=== PATIENT | female | born 2000 | race Hispanic/Latino ===

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

== ENCOUNTER 2022-11-19 10:02 | Emergency (ER) | payer OTHER ==
--- OUTSIDE RECORDS SUMMARY | 2022-11-19 10:07 | XMS REPORT | Continuity of Care Document ---
:2000 Author Organization [facility] t Address [address] [place] [address] Care Team Providers Name Role Phone MAGALI VANG P.A. Attending Clinician Unavailable SABI LAMB M.D. Attending Clinician Unavailable BURAK MARIN APRN Attending Clinician Unavailable Problems Condition Condition Condition Status Onset Resolution Last Treating Co mments Source Name Details Category Date Date Treatment Clinician Date Concussion Concussion Problem Active [facility] Headache Headache Problem Active [facility] Knee pain, Knee pain, Problem Active [facility] Allergies, Adverse Reactions, Alerts This patient has no known allergies or adverse reactions. Family History Family Member Diagnosis Comments Start Date Stop Date Source Grandmother Family history of diabetes [facility] mellitus Grandmother Family history of [facility] hypertension Grandmother Family history of arthritis [facility] Social History Smoking Status Start Date Stop Date Source Never smoked tobacco (finding) [facility] Medications Ordered Filled Start Stop Current Ordering Indication Dosage Frequency Signature Comments Components Source Medication Medication Date Date Medication? Clinician (SIG) Name Name Tylenol Tylenol Yes [facility] Immunizations Ordered Immunization Filled Immunization Date Status Commen ts Source Name Name Meningococcal, MCV4, 2018-09-04 Completed [facility] unspecified 00:00:00 conjugate formulation(groups A, C, Y and W-135) Meningococcal, MCV4, 2016-06-08 Completed [facility] unspecified 00:00:00 conjugate formulation(groups A, C, Y and W-135) Boostrix 5-2.5-18.5 2016-06-08 Completed [facility] Intramuscular 00:00:00 Suspension influenza virus 2013-09-04 Completed [facility] vaccine, unspecified 00:00:00 formulation influenza virus 2012-08-25 Completed [facility] vaccine, unspecified 00:00:00 formulation influenza virus 2011-09-27 Completed [facility] vaccine, unspecified 00:00:00 formulation influenza virus 2009-07-13 Completed [facility] vaccine, unspecified 00:00:00 formulation DTaP, unspecified 2008-08-25 Completed [facility] formulation 00:00:00 hepatitis A vaccine, 2008-08-25 Completed [facility] pediatric/adolescent 00:00:00 dosage, 2 dose schedule Ipol Injection 2008-07-05 Completed [facility] Injectable 00:00:00 Varivax 1350 2008-07-05 Completed [facility] PFU/0.5ML 00:00:00 Subcutaneous Injectable DTaP - Hepatitis B - 2008-01-26 Completed [facility] IPV 00:00:00 Pneumo (Prevnar 7) 2008-01-26 Completed [facility] 00:00:00 Hib, Haemophilus 2008-01-26 Completed [facility] influenzae type b 00:00:00 vaccine, PRP-T conjugate M-M-R II 2008-01-26 Completed [facility] Subcutaneous 00:00:00 Injectable hepatitis A vaccine, 2008-01-26 Completed [facility] pediatric/adolescent 00:00:00 dosage, 2 dose schedule Varivax 1350 2008-01-26 Completed [facility] PFU/0.5ML 00:00:00 Subcutaneous Injectable Hepatitis B, 2004-07-07 Completed [facility] pediatric/adolescent 00:00:00 dosage Ipol Injection 2004-07-07 Completed [facility] Injectable 00:00:00 Hib, Haemophilus 2004-07-07 Completed [facility] influenzae type b 00:00:00 vaccine, PRP-T conjugate DTaP, unspecified 2004-07-07 Completed [facility] formulation 00:00:00 M-M-R II 2004-07-07 Completed [facility] Subcutaneous 00:00:00 Injectable Hepatitis B, 2003-06-23 Completed [facility] pediatric/adolescent 00:00:00 dosage Ipol Injection 2003-06-23 Completed [facility] Injectable 00:00:00 Pneumo (Prevnar 7) 2003-06-23 Completed [facility] 00:00:00 Hib, Haemophilus 2003-06-23 Completed [facility] influenzae type b 00:00:00 vaccine, PRP-T conjugate DTaP, unspecified 2003-06-23 Completed [facility] formulation 00:00:00 Hepatitis B, 2000 Completed [facility] pediatric/adolescent 00:00:00 dosage influenza virus Unknown Completed [facility] vaccine, unspecified formulation Procedures Procedure Date / Time Performed Performing Clinician Sour e [U] XRAY KNEE 3 VWS LEFT 2019-04-24 00:00:00 [facility] [id number] Post Op Promis 29 Survey 2019-04-01 00:00:00 [facility] Encounters Start End Encounter Admission Attending Care Care Encounter Source Date/Time Date/Time Type Type Clinicians Facility Department ID 2019-04-27 2019-04-27 [facility] [id number] [place] 09:45:00 09:45:00 t; MAGALI VANG, at [facility] MAGALI, P[facility] ans P[facility] Medicine [facility] 2019-03-30 2019-03-30 [facility] [id number] [place] 09:45:00 09:45:00 t; MAGALI VANG, Ph yshusam DE [place] SANTOS, P.A. ans P.A. 2019-03-09 2019-03-09 [facility] [id number] [place] 09:45:00 09:45:00 t; MAGALI VANG, Ph ysici MAGALI, P.A. ans P.A. 2019-03-02 2019-03-02 [facility] [id number] [place] 15:00:00 15:00:00 t; MAGALI VANG, Ph ysici MAGALI, P.A. ans P.A. 2019-02-26 2019-02-26 [facility] [id number] [place] 09:15:00 09:15:00 t; SABI LAMB Physi ci WALTER, M.D. ans M.D. 2019-02-12 2019-02-12 [facility] [id number] [place] 15:00:00 15:00:00 t; SABI LAMB Physi ci WALTER, M.D. ans M.D. 2019-01-29 2019-01-29 [facility] [id number] [place] 11:00:00 11:00:00 t; BURAK, Trauma Physi stacy MARIN, [facility] This patient has no known results.
[2022-11-19 11:36] LABS: SARS-COV-2 RT PCR POSITIVE (NEGATIVE)
--- NOTE | 2022-11-19 11:40 | EDPHYS ---
Physician Documentation [facility] Name: Kandi Walker Age: 22 yrs Sex: Female : 2000 Arrival Date: 11/19/2022 Time: 10:08 Bed 10 Private MD: ED Physician Jadon Ledesma HPI: 11/19 10:26 This 22 yrs old Female presents to ER via Ambulatory with complaints of Body jr8 Aches, Fever, Headache. 10:26 Onset: The symptoms/episode began/occurred acutely, yesterday. Associated signs and jr8 symptoms: Pertinent positives: congestion, cough, fever, headache, sore throat. Modifying factors: The patient symptoms are alleviated by nothing, the patient symptoms are aggravated by nothing. The patient has not experienced similar symptoms in the past. The patient has not recently seen a physician. EQUAL OPPORTUNITY REPRESENTATIVE: 10:19 LMP 11/12/2022 ss Historical: - Allergies: 10:19 No Known Allergies; ss - Home Meds: 10:19 None [Active]; ss - PMHx: 10:19 None; ss - PSHx: 10:19 L knee repair; ss - Immunization history:: Client reports receiving the 2nd dose of the Covid vaccine. - Social history:: Smoking status: Patient denies any tobacco usage or history of. ROS: 10:26 Constitutional: Positive for body aches, chills, fever. jr8 10:26 ENT: Positive for sinus congestion, sore throat. 10:26 Respiratory: Positive for cough, Negative for shortness of breath, sputum production, wheezing. 10:26 Neuro: Positive for headache. 10:26 All other systems are negative. Exam: 10:26 Eyes: Pupils equal round and reactive to light, extra-ocular motions intact. Lids and jr8 lashes normal. Conjunctiva and sclera are non-icteric and not injected. Cornea within normal limits. Periorbital areas with no swelling, redness, or edema. ENT: Nares patent. No nasal discharge, no septal abnormalities noted. Tympanic membranes are normal and external auditory canals are clear. Oropharynx with mild redness. No swelling, or masses, exudates, or evidence of obstruction, uvula midline. Mucous membranes moist. Neck: Trachea midline, no thyromegaly or masses palpated, and no cervical lymphadenopathy. Supple, full range of motion without nuchal rigidity, or vertebral point tenderness. No Meningismus. Cardiovascular: Regular rate and rhythm with a normal S1 and S2. No gallops, murmurs, or rubs. Normal PMI, no JVD. No pulse deficits. Respiratory: Lungs have equal breath sounds bilaterally, clear to auscultation and percussion. No rales, rhonchi or wheezes noted. No increased work of breathing, no retractions or nasal flaring. Abdomen/GI: Soft, non-tender, with normal bowel sounds. No distension or tympany. No guarding or rebound. No evidence of tenderness throughout. Back: No spinal tenderness. No costovertebral tenderness. Full range of motion. Skin: Warm, dry with normal turgor. Normal color with no rashes, no lesions, and no evidence of cellulitis. MS/ Extremity: Pulses equal, no cyanosis. Neurovascular intact. Full, normal range of motion. Neuro: Awake and alert, GCS 15, oriented to person, place, time, and situation. Motor strength 5/5 in all extremities. Sensory grossly intact. Vital Signs: 10:18 BP 131 / 91; Pulse 98; Resp 14; Temp 97.9(TE); Pulse Ox 98% on R/A; Weight 74.84 kg; ss Height 5 ft. 3 in. (160.02 cm); Pain 0/10; 10:18 Body Mass Index 29.23 (74.84 kg, 160.02 cm) ss MDM: 10:20 Patient medically screened. rust 11:38 Data reviewed: vital signs, nurses notes, lab test result(s), covid +. Counseling: I rust had a detailed discussion with the patient and/or guardian regarding: the historical points, exam findings, and any diagnostic results supporting the discharge/admit diagnosis, lab results, the need for outpatient follow up, a family practitioner, to return to the emergency department if symptoms worsen or persist or if there are any questions or concerns that arise at home. 11:40 I considered the following discharge prescriptions or medication management in the rust emergency department Antibiotics: At this time antibiotics are not recommended, Antivirals: At this time, antivirals are not recommended. ED course: Discussed with patient that she is COVID-positive. No significant past medical history no indication to start her on antiviral treatment. To treat symptomatically with Tylenol and Motrin and will prescribe cough medicine at this time. If she has worsening of condition come back for further evaluation. Otherwise needs to isolate and conform to the CDC rules and regulations associated with COVID.. 11/19 10:26 Order name: Strep; Complete Time: 11:03 jr8 11/19 10:26 Order name: COVID-19/FLU A+B; Complete Time: 11:39 jr8 11/19 11:02 Order name: Throat Culture EDMS Administered Medications: No medications were administered Disposition: 19:17 Co-signature as Attending Physician, Jadon Ledesma DO I reviewed the patient's care ms3 provided by the Advanced Practice Provider and agree with the diagnosis and treatment plan. Disposition Summary: 11/19/22 11:39 Discharge Ordered Location: Home jr8 Problem: new jr8 Symptoms: have improved jr8 Condition: Stable jr8 Diagnosis - SARS-associated coronavirus as the cause of diseases classified elsewhere jr8 Followup: jr8 - With: Private Physician - When: 1 week - Reason: Recheck today's complaints, Continuance of care, Re-evaluation by your physician Discharge Instructions: - Discharge Summary Sheet jr8 - COVID-19 jr8 - 10 Things You Can Do to Manage Your COVID-19 Symptoms at Home - [facility] jr8 Forms: - Medication Reconciliation Form jr8 - Work release form iw - Thank You Letter jr8 - Antibiotic Education jr8 - Prescription Opioid Use jr8 Prescriptions: - promethazine-DM 6.25-15 mg/5 mL Oral syrup - take 5 milliliter by ORAL route every 4-6 hours as needed, not to exceed 30 mL jr8 in 24 hours; 120 milliliter; Refills: 0, Product Selection Permitted Signatures: Dispatcher [employer] EDMS Nicole Brown RN RN Silviano Crump PA PA jr8 Jadon Ledesma DO DO ms3
--- NOTE | 2022-11-19 11:40 | ER ---
Nurse's Notes [facility] Name: Kandi Walker Age: 22 yrs Sex: Female : 2000 Arrival Date: 11/19/2022 Time: 10:08 Bed 10 Private MD: Diagnosis: SARS-associated coronavirus as the cause of diseases classified elsewhere Presentation: 11/19 10:18 Chief complaint: Patient states: fever, body aches, sore throat, cough and congestion ss that began Ramos evening. Coronavirus screen: Client denies travel out of the [place] in the last 14 days. Ebola Screen: Patient denies exposure to infectious person. Patient denies travel to an Ebola-affected area in the 21 days before illness onset. Initial Sepsis Screen: Does the patient meet any 2 criteria? No. Patient's initial sepsis screen is negative. Does the patient have a suspected source of infection? No. Patient's initial sepsis screen is negative. Risk Assessment: Do you want to hurt yourself or someone else? Patient reports no desire to harm self or others. Note Pt last self administered Tylenol at 0900. Onset of symptoms was November 16, 2022. 10:18 Method Of Arrival: Ambulatory ss 10:18 Acuity: KAYLYN 4 ss DOMAIN ARCHITECT: 10:19 LMP 11/12/2022 Historical: - Allergies: 10:19 No Known Allergies; ss - Home Meds: 10:19 None [Active]; ss - PMHx: 10:19 None; ss - PSHx: 10:19 L knee repair; ss - Immunization history:: Client reports receiving the 2nd dose of the Covid vaccine. - Social history:: Smoking status: Patient denies any tobacco usage or history of. Vital Signs: 10:18 BP 131 / 91; Pulse 98; Resp 14; Temp 97.9(TE); Pulse Ox 98% on R/A; Weight 74.84 kg; ss Height 5 ft. 3 in. (160.02 cm); Pain 0/10; 10:18 Body Mass Index 29.23 (74.84 kg, 160.02 cm) ED Course: 10:08 Patient arrived in ED. rg4 10:19 Triage completed. ss 10:19 Arm band placed on right wrist. ss 10:20 Silviano Bermudez PA is PHCP. jr8 10:20 Jadon Ledesma DO is Attending Physician. jr8 10:20 Mary Angeles, RN is Primary Nurse. iw 10:44 COVID-19/FLU A+B Sent. ap3 10:44 Strep Sent. ap3 Administered Medications: No medications were administered Outcome: 11:39 Discharge ordered by . jr8 11:57 Patient left the ED. iw Signatures: Mary Angeles, RN SANDY Nicole Brown RN RN Silviano Bermudez PA PA jr8 Devi Liriano 4 Mary Snow RN RN ap3
[2022-11-19 12:30] VITALS: BP 131/91; TEMP 97.9; O2SAT 98
== END 2022-11-19 11:57 | disposition home or self-care (01) ==
LOC: ER 10:02
DX: U07.1 COVID-19 (principal)
CPT/HCPCS: 87070; 87081; 0240U; 99282

== ENCOUNTER 2023-06-18 15:58 | Emergency (ER) | payer OTHER ==
--- OUTSIDE RECORDS SUMMARY | 2023-06-18 16:16 | XMS REPORT | Continuity of Care Document ---
:2000 Author Organization [facility] t Address [address] [facility] [address] [place] [id number] Care Team Providers Name Role Phone Jesus Herrera Primary Care Physician ELOY CLEVELAND Attending Clinician Unavailable ELOY CLEVELAND Attending Clinician Unavailable 2, [facility] Attending Clinician Unavailable Doctor Unassigned, [place] Attending Clinician Unavailable MAGALI VANG P.A. Attending Clinician Unavailable SABI LAMB M.D. Attending Clinician Unavailable BURAK MARIN APRN Attending Clinician Unavailable Payers Payer Name Policy Type Policy Number Effective Date Expiration Date S ource Problems Condition Condition Condition Status Onset Resolution Last Treating Co mments Source Name Details Category Date Date Treatment Clinician Date Concussion Concussion Problem Active [facility] Headache Headache Problem Active [facility] Knee pain, Knee pain, Problem Active [facility] left left Physici ans Allergies, Adverse Reactions, Alerts Allergy Allergy Status Severity Reaction(s) Onset Inactive Treating Comm ents Source Name Type Date Date Clinician NO KNOWN Drug Active Univers ALLERGIE Class ity of [facility] Family History Family Member Diagnosis Comments Start Date Stop Date Source Grandmother Family history of diabetes [facility] mellitus Grandmother Family history of [facility] hypertension Grandmother Family history of arthritis [facility] Social History Social Habit Start Date Stop Date Quantity Comments Source ASSERTION 2023-04-12 [facility] 00:00:[address] [facility] Gender identity [facility] Sexual orientation Univer [facility] Alcohol intake 2023-05-31 2023-05-31 Ex-drinker University of 00:00:00 00:00:00 (finding) [facility] Sex Assigned At [birth year] [facility] y [facility] 00:00:00 00:00:[address] [facility] Smoking Status Start Date Stop Date Source Never smoked tobacco (finding) [facility] Tobacco smoking consumption [facility] Medications Ordered Filled Start Stop Current Ordering [...] Completed [facility] vaccine, unspecified formulation Vital Signs Vital Name Observation Time Observation Value Comments Source Systolic blood 2023-05-31 14:36:00 105 mm[facility]Hg[facility] Diastolic blood 2023-05-31 14:36:00 79 mm[Hg] [facility] Heart rate 2023-05-31 14:36:00 85 /min [facility] Body temperature 2023-05-31 14:36:00 36.83 [place] [facility] Respiratory rate 2023-05-31 14:36:00 18 /min [facility] Body height 2023-05-31 14:36:00 160 cm [facility] Body weight 2023-05-31 14:36:00 76.658 kg [facility] BMI 2023-05-31 14:36:00 29.94 kg/m2 [facility] Procedures Procedure Date / Time Performing Clinician Source Performed POCT URINALYSIS W/O 2023-05-31 15:04:00 Eloy Cleveland Un iversity [facility] SPECIFIC GRAVITY [facility] US OB TRANSVAGINAL 2023-05-31 15:02:50 Eloy Cleveland Uni [facility] ASSIGNMENT OF BENEFITS 2023-05-31 14:16:01 Doctor Unassigned, No [facility] POCT TEST 2023-05-31 00:00:00 [facility] K[facility]EE 3 VWS 2019-04-24 00:00:00 [facility] LEFT [id number] Post Op Promis 29 2019-04-01 00:00:00 [facility] Survey Encounters Start End Encounter Admission Attending Care Care Encounter Source Date/Time Date/Time Type Type Clinicians Facility Department ID 2023-06-17 2023-06-17 Telephone Avila-Stephanie [facility] [id number] [facility] 00:00:00 00:00:00 s, Eloy [place] [id number] [id number] [phone] Mi dical NAL [address] [place] [address] 2023-06-07 2023-06-07 Telephone Avila-Stephanie [facility] [id number] [facility] 00:00:00 00:00:00 s, Eloy [place] [id number] [id number] [id number] Mi dical NAL [address] [place] [address] 2023-05-31 2023-05-31 C Programmer 2, Adc Lab [facility] [id number] [facility] 11:15:00 11:30:00 Visit Eloy ClevelandTON 350.1.1 3.10 [id number] [id number] Mi dical NAL [address] [facility] 2023-05-31 2023-05-31 Outpatient R ELOY CLEVELAND [facility] [id number] Univers 11:15:00 11:15:[address] C[address]SOL ity of [facility] 2023-05-31 2023-05-31 Initial Camilla [facility] [id number] Univers 09:00:00 10:07:01 s, [facility] [id number] ity of Visit [id number] [phone] Mi dical NAL [address] [facility] 2023-05-31 2023-05-31 Orders Doctor TANNER [id number] Univers 00:00:00 00:00:00 Only Unassigned, JOSEPHINE [id number] ity of [place] [facility] [id number] [place] as [id number] [address] 2019-04-27 2019-04-27 [facility]oint[facility]ha [facility] [id number] [place] 09:45:00 09:45:00 t; MAGALI VANG, at [facility]ebo [place] [employer] ans [facility]. Medicine [place] [facility] 2019-03-30 2019-03-30 Appointmegha VANG, [facility] [id number] [place] 09:45:00 09:45:00 t; MAGALI VANG, Ph kalen [place], PPatric ans P.A. 2019-03-09 2019-03-09 Appointmegha VANG, [facility] [id number] [place] 09:45:00 09:45:00 t; MAGALI VANG, Ph kalen [place], P.AElgin ans P.A. 2019-03-02 2019-03-02 Appointmegha VANG, [facility] [id number] [place] 15:00:00 15:00:00 t; MAGALI VANG, Ph kalen [place], P.AElgin ans P.A. 2019-02-26 2019-02-26 Pily LAMB [facility] [id number] [place] 09:15:00 09:15:00 t; SABI LAMB Physi ci WALTER, M.D. ans M.D. 2019-02-12 2019-02-12 Appointmen ZAINAB [facility] [id number] [place] 15:00:00 15:00:00 t; SABI LAMB Physi ci WALTER, M.D. ans M.D. 2019-01-29 2019-01-29 Appointmegha MARIN [facility] Orthopedics 51 [id number] [place] 11:00:00 11:00:00 t; BURAK, [facility] Results Test Description Test Time Test Comments Results Result Comments Source POCT URINALYSIS W/O SPECIFIC GRAVITY 2023-05-31 15:05:00 Test Item Value Reference Range Interpretation Comme nts POCT PH U (test code = 3254) 8 mg/dl 5-8 POCT U LEUK EST (test code = 3263) Negative Negative - Negative POCT U NIT (test code = 3262) Negative Negative - Negative POCT U PROT (test code = 3259) Negative Negative - Negative POCT U GLU (test code = 3256) Normal Negative - Negative POCT U KETONE (test code = 3258) Negative Negative - Negative POCT U BLD (test code = 3257) Normal Negative - Negative [id number] 14:49:00 Test Item Value Reference Range Interpretation Comments POCT PREG (test code = 1605) Positive On board controls acceptable with C Yes Line (test code = 3574) POCT PREG LOT # (test code = 3575) POCT PREG TEST DATE (test code = 3576) [facility] Notes Date/Time Note Provider Source 2023-06-17 Formatting of this note might be differe nt from the original. Alicia Carrillo [facility] 14:37:43-00:00 Name and verified. Pt st ated that she has been having lower back pain above her buttocks x 1 week radiating down right leg. Only when she moves a certain way or walking for a long period of time. Pt RN also stated that she is sti ll constipated. Last BM was last night. Hard stools. Took stool softener x 1. Advised pt that she should t salazar Tyenol for back pain. Apply heat to lower back at lowest temperature. Use a pillow in between knees at night. Stretch. If not better- to call our office. I also advised pt to continu e stool softeners as directed on bottle. One dose will not make it better right away. Increase fluids and fiber. Pt also c/o being tired. Exp lained to her that her CBC was normal. Advised to continue PNV and eat well. Instructed pt to call office if s/s worsens or does not get better, Verbalized understanding. 2023-06-17 Formatting of this note might be differe nt from the original. Paola Chicas [facility] 11:17:11-00:00 Patient is calling she is ex periencing pain walking not sure if it's her sciatica. Her body feels tired and weak. Patient also still she is still having trouble using the restroom. Please call and advise thanks. Electronically signed by Paola Chicas at 11:19 AM T 2023-06-07 Formatting of this note might be differe nt from the original. Vin Becerra RN [facility] 16:40:19-00:00 Contacted patient. Patient s tates she needs medication for constipation. Patient advised I would send safe medications during list through [facility]. Patient verbalized understanding. Vin Becerra RN 06/07/2023 4:41 PM 2023-06-07 Formatting of this note might be differe nt from the original. Yanira Jim [facility] 16:24:03-00:00 Per pt is and is co nstipated and would like to know what she can take. Please advise. Electronically signed by Yanira Jim at 05/28 4:24 PM CDT 2023-05-31 Formatting of this note is different from the or iginal. [facility] 11:15:00-00:00 Images from the original note were not included. Venipuncture collection perf ormed by clean technique on the left anticubitus. Total of 1 attempts were made. Slight pressure and a bandage/dressing were applied to the site(s). The patient experienced n o complications. The followi ng specimens were processed according to instructions and sent to [facility] laboratories per lab order on 05/31/2023 : LT BLUE SST 3 RED LAV 2 PPT DK GREEN (LiHep) DK GREEN (SodH) OROSCO DK BLUE (K2) DK BLUE (S) ACD Blood Culture NIPT/NTD Electronically signed by Martha Penn at 2022 10:32 AM CDT
[2023-06-18 16:42] LABS: Urine Bacteria <20 /HPF (<20); Urine Bilirubin Negative (Negative); Urine Clarity Turbid (Clear); Urine Color Yellow (Yellow); Urine Glucose Negative (Negative); Urine Mucus 4+ /HPF (None Seen); Urine WBC Clump Occasional /HPF (None Seen)
[2023-06-18 16:43] LABS: Urine Blood 1+ (Negative); Urine Protein 1+ (Negative); Urine Urobilinogen Normal (Normal)
[2023-06-18] MEDS ORDERED: ACETAMINOPHEN 500 MG TAB ONE (16:53)
--- NOTE | 2023-06-18 17:50 | EDPHYS ---
Physician Documentation [facility] Name: Kandi Walker Age: 22 yrs Sex: Female : 2000 Arrival Date: 06/18/2023 Time: 15:58 Bed 13 Private MD: ED Physician Jadon Ledesma HPI: 06/18 17:49 This 22 yrs old Female presents to ER via Ambulatory with complaints of ms3 Nausea/Vomiting. 17:49 22-year-old female with no past medical history presents for generalized weakness, ms3 fatigue, back pain that has been ongoing for 1 week. Patient states she has 6/10 discomfort as her body hurts. Patient states she is currently and Dr. Rolon's with [facility] is her OB. Patient states her last menstrual period was February 11, 2023. Patient is G1, P0. Patient endorses nausea. Patient denies urinary frequency, urgency, dysuria, vaginal bleeding.. 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 - Social history:: Smoking status: Patient denies any tobacco usage or history of. ROS: 17:49 Eyes: Negative for injury, pain, redness, and discharge, Neck: Negative for injury, ms3 pain, and swelling, Cardiovascular: Negative for chest pain, and palpitations. Respiratory: Negative for shortness of breath, cough, wheezing, and pleuritic chest pain. 17:49 : Negative for injury, bleeding, discharge, and swelling, Skin: Negative for injury, rash, and discoloration, Neuro: Negative for headache, weakness, numbness, tingling. Psych: Negative for depression, anxiety, suicide ideation, homicidal ideation, and hallucinations. 17:49 Constitutional: Positive for malaise, Generalized weakness. 17:49 Abdomen/GI: Positive for nausea. 17:49 All other systems are negative. Exam: 17:49 Constitutional: This is a well developed, well nourished patient who is awake, alert, ms3 and in no acute distress. Head/Face: Normocephalic, atraumatic. Neck: Trachea midline, no cervical lymphadenopathy. Supple, full range of motion without nuchal rigidity, or vertebral point tenderness. No Meningismus. Chest/axilla: Normal chest wall appearance and motion. Nontender with no deformity. Cardiovascular: Regular rate and rhythm with a normal S1 and S2. No gallops, murmurs, or rubs. Normal PMI, no JVD. No pulse deficits. Respiratory: Lungs have equal breath sounds bilaterally, clear to auscultation and percussion. No rales, rhonchi or wheezes noted. No increased work of breathing, no retractions or nasal flaring. Abdomen/GI: Soft, non-tender, with normal bowel sounds. No distension or tympany. No guarding or rebound. No evidence of tenderness throughout. Back: No spinal tenderness. No costovertebral tenderness. Full range of motion. Skin: Warm, dry with normal turgor. Normal color with no rashes, no lesions, and no evidence of cellulitis. MS/ Extremity: Pulses equal, no cyanosis. Neurovascular intact. Full, normal range of motion. Neuro: Awake and alert, GCS 15, oriented to person, place, time, and situation. Cranial nerves II-XII grossly intact. Motor strength 5/5 in all extremities. Sensory grossly intact. Cerebellar exam normal. Normal gait. Vital Signs: 16:10 BP 125 / 90; Pulse 80; Resp 17; Temp 97.5; Pulse Ox 99% on R/A; Weight 76.66 kg (R); rs5 Height 5 ft. 3 in. (R); Pain 6/10; 17:50 BP 122 / 84; Pulse 88; Resp 16; Pulse Ox 100% on R/A; mb9 16:10 Body Mass Index 29.94 (76.66 kg, 160.02 cm) rs5 16:10 Pain Scale: Adult rs5 MDM: 16:38 Patient medically screened. ms3 17:49 Differential diagnosis: UTI versus anemia versus electrolyte abnormality. Data ms3 reviewed: vital signs, nurses notes, lab test result(s), and as a result, I will discharge patient. I considered the following discharge prescriptions or medication management in the emergency department Medications were administered in the Emergency Department. See MAR. Counseling: I had a detailed discussion with the patient and/or guardian regarding the historical points, exam findings, and any diagnostic results supporting the discharge/admit diagnosis, lab results, the need for outpatient follow up, to return to the emergency department if symptoms worsen or persist or if there are any questions or concerns that arise at home. Special discussion: I discussed with the patient/guardian in detail that at this point there is no indication for admission to the hospital. It is understood, however, that if the symptoms persist or worsen the patient needs to return immediately for re-evaluation. ED course: Discussed urinalysis with patient. Patient to follow-up with her computer tester and 2 to 3 days. Patient understands and agrees with plan. All questions were answered. Return precautions discussed include fevers, chills, vomiting, abdominal pain, worsening symptoms, or any other concerns. On reevaluation patient is improved, alert and oriented x4, no apparent distress, nontoxic-appearing, ambulatory in emergency department, speaking full sentences. 06/18 16:23 Order name: Urinalysis w/ reflexes; Complete Time: 17:47 ms3 06/18 16:47 Order name: Urine Culture EDMS Administered Medications: 16:47 Drug: Acetaminophen PO 1000 mg Route: PO; mb9 17:50 Follow up: Response: No adverse reaction mb9 Disposition Summary: 06/18/23 17:49 Discharge Ordered Location: Home ms3 Condition: Stable ms3 Diagnosis - Low back pain ms3 - Nausea ms3 Followup: ms3 - With: Private Physician - When: 2 - 3 days - Reason: Recheck today's complaints Discharge Instructions: - Discharge Summary Sheet ms3 - Nausea, Adult, [id number] ms3 - Preparing for ms3 Forms: - Medication Reconciliation Form ms3 - Thank You Letter ms3 - Antibiotic Education ms3 - Prescription Opioid Use ms3 - Patient Portal Instructions ms3 - Leadership Thank You Letter ms3 Prescriptions: - Diclegis 10-10 mg Oral tablet, delayed release (enteric coated) - take 1 tablet by ORAL route every day at bedtime; 30 tablet; Refills: 0, ms3 Product Selection Permitted Signatures: Dispatcher [employer] EDMS Jadon Ledesma DO DO ms3 Maryellen Patterson RN RN mb9 Raúl Wynn RN RN rs5
--- NOTE | 2023-06-18 17:50 | ER ---
Nurse's Notes [facility] Name: Kandi Walker Age: 22 yrs Sex: Female : 2000 Arrival Date: 06/18/2023 Time: 15:58 Bed 13 Private MD: Diagnosis: Low back pain;Nausea Presentation: 06/18 16:08 Chief complaint: Patient states: weakness, dizziness, nausea, vomiting for a week. Pt rs5 states "I am three months ". 16:08 Method Of Arrival: Ambulatory rs5 16:10 Coronavirus screen: nausea, vomiting. Ebola Screen: Patient denies exposure to rs5 infectious person. Patient denies travel to an Ebola-affected area in the 21 days before illness onset. Initial Sepsis Screen: Does the patient meet any 2 criteria? No. Patient's initial sepsis screen is negative. Does the patient have a suspected source of infection? No. Patient's initial sepsis screen is negative. Risk Assessment: Do you want to hurt yourself or someone else? Patient reports no desire to harm self or others. 16:10 Acuity: KAYLYN 3 rs5 16:10 Onset of symptoms was June 11, 2023. 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 - Social history:: Smoking status: Patient denies any tobacco usage or history of. Screenin:48 [facility] ED Fall Risk Assessment (Adult) History of falling in the last 3 months, mb9 including since admission No falls in past 3 months (0 pts) Confusion or Disorientation No (0 pts) Intoxicated or Sedated No (0 pts) Impaired Gait No (0 pts) Mobility Assist Device Used No (0 pt) Altered Elimination No (0 pt) Score/Fall Risk Level 0 - 2 = Low Risk Oriented to surroundings, Maintained a safe environment, Educated pt \\T\\ family on fall prevention, incl call for assistance when getting out of bed. Abuse screen: Denies threats or abuse. Nutritional screening: No deficits noted. Tuberculosis screening: No symptoms or risk factors identified. Assessment: 16:47 General: Appears in no apparent distress. Behavior is calm, cooperative. Pain: Denies mb9 pain. Neuro: Jaime Agitation-Sedation Scale (RASS): 0 - Alert and Calm Level of Consciousness is awake, alert, obeys commands, Oriented to person, place, time, situation, Appropriate for age Reports dizziness, headache. Cardiovascular: Patient's skin is warm and dry. Respiratory: Airway is patent Respiratory effort is even, unlabored, Respiratory pattern is regular, symmetrical. GI: Abdomen is flat, non-distended, Bowel sounds present X 4 quads. Abd is soft and non tender X 4 quads. Reports nausea. Derm: Skin is pink, warm \\T\\ dry. Musculoskeletal: Range of motion: intact in all extremities. 17:37 Reassessment: No changes from previously documented assessment. Patient and/or family mb9 updated on plan of care and expected duration. Pain level reassessed. Patient is alert, oriented x 3, equal unlabored respirations, skin warm/dry/pink. Vital Signs: 16:10 BP 125 / 90; Pulse 80; Resp 17; Temp 97.5; Pulse Ox 99% on R/A; Weight 76.66 kg (R); rs5 Height 5 ft. 3 in. (R); Pain 6/10; 17:50 BP 122 / 84; Pulse 88; Resp 16; Pulse Ox 100% on R/A; mb9 16:10 Body Mass Index 29.94 (76.66 kg, 160.02 cm) rs5 16:10 Pain Scale: Adult rs5 ED Course: 16:03 Patient arrived in ED. kj1 16:06 Jadon Ledesma DO is Attending Physician. ms3 16:13 Triage completed. rs5 16:39 Maryellen Patterson, SANDY is Primary Nurse. mb9 16:47 Arm band placed on. mb9 16:48 Placed in gown. Bed in low position. Call light in reach. Side rails up X 1. Client mb9 placed on continuous cardiac and pulse oximetry monitoring. NIBP monitoring applied. security monitor on. 17:50 No provider procedures requiring assistance completed. Patient did not have IV access mb9 during this emergency room visit. 17:50 Urine Culture Sent. mb9 Administered Medications: 16:47 Drug: Acetaminophen PO 1000 mg Route: PO; mb9 17:50 Follow up: Response: No adverse reaction mb9 Medication: 16:48 VIS not applicable for this client. mb9 Outcome: 17:49 Discharge ordered by . ms3 17:56 Discharged to home ambulatory. mb9 17:56 Condition: stable 17:56 Discharge instructions given to patient, Instructed on discharge instructions, follow up and referral plans. Demonstrated understanding of instructions, follow-up care, medications, Prescriptions given X 1. 17:56 Patient left the ED. mb9 Signatures: Codi Rob [email or web address] Jadon Ledesma DO DO ms3 Maryellen Patterson, RN RN mb9 Raúl Wynn RN RN rs5 Corrections: (The following items were deleted from the chart) 16:16 16:10 BP 125 / 90; Pulse 80bpm; Resp 17bpm; Pulse Ox 99% RA; Temp 97.5F; Pain 6/10, rs5 Adult; rs5
[2023-06-18 18:44] VITALS: TEMP 97.5
[2023-06-18 18:45] VITALS: BP 122/84; O2SAT 100
== END 2023-06-18 17:56 | disposition home or self-care (01) ==
LOC: ER 15:58
DX: O21.9 Vomiting of pregnancy, unspecified (principal); O26.891 Other specified pregnancy related conditions, first trimester; Z3A.12 12 weeks gestation of pregnancy
CPT/HCPCS: 81001; 87086; 87088; 99284

== ENCOUNTER 2023-07-31 17:21 | Emergency (ER) | payer OTHER ==
--- OUTSIDE RECORDS SUMMARY | 2023-07-31 17:25 | XMS REPORT | Continuity of Care Document ---
:2000 Author Organization [facility] t Address [address] [place] [address] [id number] Care Team Providers Name Role Phone ELISSA QUINTANAALD Diane Primary Care Physician Unavailable ELOY CLEVELAND Attending Clinician Unavailable ELOY CLEVELAND Attending Clinician Unavailable 2, [facility] Attending Clinician Unavailable Doctor Unassigned, [place] Attending Clinician Unavailable MAGALI VANG P.A. Attending Clinician Unavailable SABI LAMB M.D. Attending Clinician Unavailable BURAK MARIN APRN Attending Clinician Unavailable Payers Payer Name Policy Type Policy Number Effective Date Expiration Date [facility] [id number] 2021 PPO 00:00:00 Problems Condition Condition Condition Status Onset Resolution Last Treating Co mments Source Name Details Category Date Date Treatment Clinician Date High-risk High-risk Disease Active Uni vers 06-28 ity of in first in first 00:: [place] trimester trimester 00 [facility] Vaginal Vaginal Disease Active Univers discharge discharge 06-28 ity of 00:00: [address] Nausea and Nausea and Disease Active U nivers vomiting vomiting 06-28 ity of during during 00:00: [place] 00 [facility] Concussion Concussion Problem Active [facility] Headache Headache Problem Active [facility] Knee pain, Knee pain, Problem Active U T left left Physici ans Allergies, Adverse Reactions, Alerts Allergy Allergy Status Severity Reaction(s) Onset Inactive Treating Comm ents Source Name Type Date Date Clinician NO KNOWN Drug Active Univers ALLERGIE Class ity of S [facility] Family History Family Member Diagnosis Comments Start Date Stop Date Source Grandmother Family history of diabetes [facility] mellitus Grandmother Family history of [facility] hypertension Grandmother Family history of arthritis [facility] Social History Social Habit Start Date Stop Date Quantity Comments Source ASSERTION 2023-04-12 [facility] 00:00:00 [facility] Gender identity [facility] Sexual orientation [facility] Alcohol intake 2023-07-29 2023-07-29 Ex-drinker [facility] 00:00:00 00:00:00 (finding) [facility] Sex Assigned At [birth year] Universit y of 00:00:00 00:00:00 [facility] Smoking Status Start Date Stop Date Source Never smoked tobacco (finding) [facility] Tobacco smoking consumption [facility] Branch Medications Ordered Filled Start Stop Current Ordering Indication Dosage Frequency Signature Comments Components Source Medication Medication Date Date Medication? Clinician (SIG) Name Name metroNIDAZO Yes [id number] 500mg Take 1 Univers LE (FLAGYL) 9-03 tablet by ity of 500 mg 00:00: mouth [place] tablet 00 every 12 Medical (twelve) Branch hours. metroNIDAZO Yes [id number] 500mg Take 1 Univers LE (FLAGYL) 9-03 tablet by ity of 500 mg 00:00: mouth [place] tablet 00 every 12 Medical (twelve) Branch hours. metroNIDAZO Yes [id number] 500mg Take 1 Univers LE (FLAGYL) 9-03 tablet by ity of 500 mg 00:00: mouth [place] tablet 00 every 12 Medical (twelve) Branch hours. metroNIDAZO Yes [id number] 500mg Take 1 Univers LE (FLAGYL) 9-03 tablet by ity of 500 mg 00:00: mouth [place] tablet 00 every 12 Medical (twelve) Branch hours. Yes Take by [employer] s 25/iron - mouth. ity of fum/folic/d 16:00: [facility] 31 Medical (-1 Branch ORAL) Yes Take by Univer s 25/iron - mouth. ity of fum/folic/d 16:00: [facility] 31 Medical (-1 Branch ORAL) Yes Take by [employer] [facility] 25/iron 9-01 mouth. ity of fum/folic/d 16:00: [facility] 31 Medical (-1 Branch ORAL) Yes Take by Univer s 25/iron 9-01 mouth. ity of fum/folic/d 16:00: [facility] 31 Medical (-1 Branch ORAL) Yes Take by Univer s 25/iron 9-01 mouth. ity of fum/folic/d 16:00: [facility] 31 Medical (-1 Branch ORAL) proMETHazin Yes [id number] 25mg Take 1 Univers e 25 mg 9-01 tablet by ity of tablet 00:00: mouth at [place] [address] bedtime. Medical Branch proMETHazin Yes [id number] 25mg Take 1 Univers e 25 mg 9-01 tablet by ity of tablet 00:00: mouth at [place] [address] bedtime. Medical Branch proMETHazin Yes [id number] 25mg Take 1 Univers e 25 mg 9-01 tablet by ity of tablet 00:00: mouth at [place] [address] bedtime. Medical Branch proMETHazin Yes [id number] 25mg Take 1 Univers e 25 mg 9-01 tablet by ity of tablet 00:00: mouth at [place] [address] bedtime. Medical Branch proMETHazin Yes [id number] 25mg Take 1 Univers e 25 mg 9-01 tablet by ity of tablet 00:00: mouth at [place] [address] bedtime. Medical Branch Tylenol Tylenol Yes [facility] TABS TABS Physici ans Vital Signs Vital Name Observation Time Observation Value Comments Source Systolic blood 2023-07-29 21:24:00 110 mm[Hg] Univer sity of pressure [facility] Diastolic blood 2023-07-29 21:24:00 74 mm[Hg] Unive rsity of pressure [facility] Heart rate 2023-07-29 21:24:00 84 /min [facility] Body temperature 2023-07-29 21:24:00 36.83 [place] [facility] Respiratory rate 2023-07-29 21:24:00 18 /min [facility] Body height 2023-07-29 21:24:00 160 cm [facility] Body weight 2023-07-29 21:24:00 73.029 kg [facility] [place] [facility] BMI 2023-07-29 21:24:00 28.52 kg/m2 [facility] [place] [facility] Systolic blood 2023-06-28 20:59:00 109 mm[Hg] Univer sity of pressure [place] [facility] Diastolic blood 2023-06-28 20:59:00 74 mm[Hg] Unive rsity of pressure [place] [facility] Heart rate 2023-06-28 20:59:00 93 /min [facility] [place] [facility] Body temperature 2023-06-28 20:59:00 36.5 [place] [facility] [place] [facility] Respiratory rate 2023-06-28 20:59:00 16 /min Univ ers[facility] [place] [facility] Body height 2023-06-28 20:59:00 160 cm [facility] [place] [facility] Body weight 2023-06-28 20:59:00 75.252 kg [facility] [place] [facility] BMI 2023-06-28 20:59:00 29.39 kg/m2 [facility] [place] [facility] Systolic blood 2023-05-31 14:36:00 105 mm[Hg] Univer sity of pressure [place] [facility] Diastolic blood 2023-05-31 14:36:00 79 mm[Hg] Unive rsity of pressure [place] [facility] Heart rate 2023-05-31 14:36:00 85 /min [facility] [place] [facility] Body temperature 2023-05-31 14:36:00 36.83 [place] [facility] [place] [facility] Respiratory rate 2023-05-31 14:36:00 18 /min Univ ers[facility] [place] [facility] Body height 2023-05-31 14:36:00 160 cm [facility] [place] [facility] Body weight 2023-05-31 14:36:00 76.658 kg [facility] [place] [facility] BMI 2023-05-31 14:36:00 29.94 kg/m2 [facility] [place] [facility] Procedures Procedure Date / Time Performing Clinician Source Performed POCT URINALYSIS W/O 2023-07-29 00:00:00 Serrano-Brizuela Eloy [facility] [place] SPECIFIC GRAVITY Medical Branch POCT URINALYSIS W/O 2023-06-28 00:00:00 Serrano-Brizuela, Eloy Un iversity of [facility] POCT URINALYSIS W/O 2023-05-31 15:04:00 Eloy Cleveland Un iversity [facility] US OB TRANSVAGINAL 2023-05-31 15:02:50 [facility]EFITS 2023-05-31 14:16:01 Doctor Unassigned, No [facility] POCT TEST 2023-05-31 00:00:00 Eloy Cleveland Un [facility] [U] XRAY KNEE 3 VWS 2019-04-24 00:00:00 [facility] LEFT [id number] Post Op Promis 29 2019-04-01 00:00:00 [facility] Survey Encounters Start End Encounter Admission Attending Care Care Encounter Source Date/Time Date/Time Type Type Clinicians Facility Department ID 2023-08-06 2023-08-06 Outpatient P [facility] [id number] Univers 14:00:00 14:00:00 [facility] 2023-07-31 2023-07-31 Outpatient R [facility] [id number] Univers 09:00:00 09:00:00 [facility] 2023-07-30 2023-07-30 Outpatient R [facility] [id number] Univers 11:30:00 11:30:00 it[facility] 2023-07-29 2023-07-29 Routine Serrano-Stephanie [facility] 1.2.840.114 [id number] Univers 16:00:00 16:15:00 Eloy clemons SAMMAMISH 350.1.13.10 ity of [place] [id number] Sc dical NAL [facility] Branch BUILDING 2023-07-29 2023-07-29 Outpatient R ELOY CLEVELAND [facility] U TMB [id number] Univers 15:00:00 15:46:14 ELOY CLEVELAND ity [facility] 2023-07-29 2023-07-29 Appraisal Analyst 2, Adc Lab [facility] 1.2.840.114 [id number] Univers 15:00:00 15:15:00 Visit Jose Clevelandsol MERI 350.1.1 3.10 ity of [place] [id number] Sc dical NAL 353 [facility] 2023-07-03 2023-07-03 Telephone [facility] 1.2.840.11 [id number] Univers 00:00:00 00:00:00 sEloy 350.1.13.10 [place] [id number] [address] 2023-06-30 2023-06-30 Case [facility]ano[facility] 1.2.840.114 [id number] Univers 00:00:00 00:00:00 Management sEloy 350.1.13.10 it[place] [id number] [address] 2023-06-28 2023-06-28 Outpatient R SERRANO-JOSE BRIZUELASOL [facility] [id number] Univers 16:00:00 16:31:16 SERRANO-BRIZUELA, ELOY ity of [facility] 2023-06-28 2023-06-28 Routine [place] [facility] 1.2.840.114 [id number] Univers 16:00:00 16:31:16 sEloy 350.1.13.10 ity of Visit [place] [id number] [address] 2023-06-17 2023-06-17 Telephone [facility] 1.2.840.114 [id number] Univers 00:00:00 00:00:00 s, Eloy MERI 350.1.13.10 it[place] [id number] Sc dical NAL 134 [facility] 2023-06-07 2023-06-07 Telephone [facility] 1.2.840.114 [id number] Univers 00:00:00 00:00:00 s, Eloy [place] 350.1.13.[address] [facility] 4[place] [id number] [facility] 134 [facility] 2023-05-31 2023-05-31 Appraisal Analyst 2, Adc Lab [facility] 1.2.840.114 [id number] Univers 11:15:00 11:30:00 Visit Jose Clevelandsol CHARLYALFREDO 350.1.[address] [facility] 4[place] [id number] [facility] 353 [facility] 2023-05-31 2023-05-31 Outpatient R PETER ELOY [facility] U TMB [id number] [facility] 11:15:00 11:15:00 SERRANO-KEREN ELOY ity of [facility] 2023-05-31 2023-05-31 Initial [place] 1.2.840.114 [id number] Univers 09:00:00 10:07:01 s, Eloy [place] 350.1.13.10 ity of [place] [id number] [facility] 134 [facility] 2023-05-31 2023-05-31 Orders Doctor TANNER 1.2.840.114 [id number] Univers 00:00:00 00:00:00 Only Unassigned, JOSEPHINE 350.1.13.10 ity of [place] [facility] 4.2.7.2.686 [place] [id number] [address] 2023-05-31 2023-05-31 Patient Doctor [facility] 1.2.840.114 [id number] Univers 00:00:00 00:00:00 Secure Msg Unassigned, [place] 350.1.13.10 ity of [place] [id number] [address] 2019-04-27 2019-04-27 Pily VANG [facility] Orthopedics [id number] [place] 09:45:00 09:45:00 t; MAGALI VANG, at [facility] Rosa Maria Bebo [place] [employer] ans P.A. [facility] 2019-03-30 2019-03-30 Appointmegha CIERA [facility] [id number] [place] 09:45:00 09:45:00 t; MAGALI VANG, Ph ysBebo Saldaña ans P.A. 2019-03-09 2019-03-09 Appointmegha GIOVANNANEHA [facility] [id number] [place] 09:45:00 09:45:00 t; MAGALI VANG, Ph Bebo Alcazar ans P.A. 2019-03-02 2019-03-02 Appointmegha [facility] [id number] [place] 15:00:00 15:00:00 t; MAGALI VANG, Ph kalen [place] PPatric ans P.AElgin 2019-02-26 2019-02-26 [facility] [id number] [place] 09:15:00 09:15:00 t; SABI LAMB Physi Kiana Loo M.D. 2019-02-12 2019-02-12 [facility] [id number] [place] 15:00:00 15:00:00 t; SABI LAMB Physi Kiana Loo M.D. 2019-01-29 2019-01-29 [facility] Orthopedics [id number] [place] 11:00:00 11:00:00 t; BURAK, Trauma Physi ci TOMAS, [facility] Results Test Description Test Time Test Comments Results Result Comments Source POCT URINALYSIS W/O SPECIFIC GRAVITY 2023-07-29 21:25:00 Test Item Value Reference Range Interpretation Comme nts POCT PH U (test code = 3254) n/a 5-8 POCT U LEUK EST (test code = 3263) n/a Negative - Negative POCT U NIT (test code = 3262) n/a Negative - Negative POCT U PROT (test code = 3259) neg Negative - Negative POCT U GLU (test code = 3256) neg Negative - Negative POCT U KETONE (test code = 3258) n/a Negative - Negative POCT U BLD (test code = 3257) n/a Negative - Negative Lab Interpretation (test code = 53092-5) Normal [facility] URINALYSIS W/O SPECIFIC [id number] 20:57:00 Test Item Value Reference Range Interpretation Comments POCT PH U (test code = 3254) n/a 5-8 POCT U LEUK EST (test code = n/a Negative - Negative 3263) POCT U NIT (test code = 3262) n/a Negative - Negative POCT U PROT (test code = 3259) negative Negative - Negative POCT U GLU (test code = 3256) negaitve Negative - Negative POCT U KETONE (test code = 3258) n/a Negative - Negative POCT U BLD (test code = 3257) n/a Negative - Negative [facility] W/O SPECIFIC [id number] 15:05:00 Test Item Value Reference Range Interpretation Comments POCT PH U (test code = 3254) 8 mg/dl 5-8 POCT U LEUK EST (test code = Negative Negative - Negative 3263) POCT U NIT (test code = 3262) Negative Negative - Negative POCT U PROT (test code = 3259) Negative Negative - Negative POCT U GLU (test code = 3256) Normal Negative - Negative POCT U KETONE (test code = 3258) Negative Negative - Negative POCT U BLD (test code = 3257) Normal Negative - Negative [facility] [id number] 14:49:00 Test Item Value Reference Range Interpretation Comments POCT PREG (test code = 1605) Positive On board controls acceptable with C Yes Line (test code = 3574) POCT PREG LOT # (test code = 3575) POCT PREG TEST DATE (test code = 3576) [facility]
[2023-07-31] MEDS ORDERED: NA CHLORIDE 0.9% 1,000 ML ONE ×2 (18:06→19:00)
[2023-07-31] MEDS ORDERED: PROMETHAZINE INJ 25 MG/ML AMP ONE (18:06)
[2023-07-31 18:19] LABS: Absolute Lymphocytes (CBC) 1.2 K/uL (0.7-4.9); Hematocrit 39.1 % (36.0-45.0); Lymphocytes % 11.2 % (15.3-44.8); MPV 10.7 fL (7.6-11.3); Platelets 196 thou/uL (152-406); RBC Red Blood Cell Count 4.34 M/uL (3.86-4.86)
[2023-07-31 18:27] LABS: Urine Bacteria <20 /HPF (<20); Urine Bilirubin NEGATIVE (Negative); Urine Blood Negative (Negative); Urine Clarity Extremely Turbid (Clear); Urine Color Yellow (Yellow); Urine Glucose NEGATIVE (Negative); Urine Protein 1+ (Negative); Urine Urobilinogen 1+ (Normal)
[2023-07-31 18:36] LABS: Potassium 4.2 mEq/L (3.5-5.1)
--- NOTE | 2023-07-31 20:20 | EDPHYS ---
Physician Documentation [facility] Name: Kandi Walker Age: 22 yrs Sex: Female : 2000 Arrival Date: 07/31/2023 Time: 17:21 Bed 10 Private MD: ED Physician Bladimir De Santiago HPI: 07/31 20:23 This 22 yrs old Female presents to ER via Ambulatory with complaints of kb Weakness, Blurred Vision, Vomiting, /4months. 20:23 The patient presents to the emergency department with nausea and vomiting. The kb estimated gestational age is 18 weeks. course: care: private OB physician, Leakage of Fluid: none appreciated, Ultrasound: the patient had an ultrasound, which was normal. Previous pregnancies: the patient has never been . Associated signs and symptoms: Pertinent positives: nausea, vomiting. The patient has not experienced similar symptoms in the past. The patient has not recently seen a physician. Pt reports nausea and vomiting for weeks. States she has told her OB about it and was told it was just apart of . States she hasn't been able to hold anything down today. . 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 - Social history:: Smoking status: Patient denies any tobacco usage or history of. ROS: 20:25 Constitutional: Negative for fever, chills, and weight loss, kb 20:25 Abdomen/GI: Positive for nausea and vomiting, Negative for abdominal pain, 20:25 All other systems are negative, Exam: 20:25 Constitutional: This is a well developed, well nourished patient who is awake, alert, kb and in no acute distress. Head/Face: Normocephalic, atraumatic. ENT: Moist Mucous membranes Cardiovascular: Regular rate Respiratory: Respirations even and unlabored. No increased work of breathing. Talking in full sentences Abdomen/GI: Soft, non-tender. No distention Skin: Warm, dry with normal turgor. Normal color. MS/ Extremity: Pulses equal, no cyanosis. Neurovascular intact. Full, normal range of motion. Neuro: Awake and alert, GCS 15, oriented to person, place, time, and situation. Moves all extremities. Normal gait. Vital Signs: 17:36 BP 115 / 63; Pulse 75; Resp 16; Temp 98.1; Pulse Ox 100% on R/A; Weight 73.03 kg; mb9 Height 5 ft. 3 in. ; Pain 0/10; 18:53 BP 104 / 61; Pulse 78; Resp 16; Pulse Ox 100% ; mb9 20:25 BP 112 / 68; Pulse 72; Resp 14; Pulse Ox 100% on R/A; mb9 17:36 Body Mass Index 28.52 (73.03 kg, 160.02 cm) mb9 17:36 Pain Scale: Adult mb9 MDM: 17:26 Patient medically screened. kb 20:25 Data reviewed: vital signs, nurses notes. kb 20:26 Differential diagnosis: dehydration, electrolyte imbalance, hyperemesis gravidarum, kb morning sickness. Test considered but Not performed: Ultrasound US considered, but pt has no abd pain, no vaginal bleeding.. Counseling: I had a detailed discussion with the patient and/or guardian regarding the historical points, exam findings, and any diagnostic results supporting the discharge/admit diagnosis, lab results, the need for outpatient follow up, an OB/Gyne specialist, to return to the emergency department if symptoms worsen or persist or if there are any questions or concerns that arise at home. ED course: Pt tolerating po intake after treatment. 07/31 17:35 Order name: CBC with Diff; Complete Time: 18:32 kb 07/31 17:35 Order name: Basic Metabolic Panel; Complete Time: 18:40 kb 07/31 17:35 Order name: Urinalysis w/ reflexes; Complete Time: 18:32 kb 07/31 17:35 Order name: IV Start; Complete Time: 18:02 kb 07/31 18:41 Order name: PO challenge; Complete Time: 18:52 kb Administered Medications: 18:33 Drug: NS 0.9% IV 1000 ml IV at 1000 ml once Route: IV; Rate: 1000 ml; Site: right hand; aa5 20:26 Follow up: Response: No adverse reaction; IV Status: Completed infusion mb9 18:42 Drug: Promethazine IVP 6.25 mg IVP once Route: IVP; Site: right hand; mb9 20:25 Follow up: Response: No adverse reaction mb9 18:52 Drug: NS 0.9% IV 1000 ml IV at 1000 ml once Route: IV; Rate: 1000 ml; Site: right hand; mb9 20:26 Follow up: Response: No adverse reaction; IV Status: Completed infusion mb9 Disposition Summary: 07/31/23 20:19 Discharge Ordered Notes: Location: Home kb Condition: Stable kb Diagnosis - Vomiting of , unspecified kb Followup: kb - With: Emergency Department - When: As needed - Reason: Worsening of condition Followup: kb - With: Private Physician - When: 2 - 3 days - Reason: Recheck today's complaints, Continuance of care, Re-evaluation by your physician Discharge Instructions: - Discharge Summary Sheet kb - Hyperemesis Gravidarum kb - Morning Sickness, [id number] kb Forms: - Medication Reconciliation Form kb - Thank You Letter kb - Antibiotic Education kb - Prescription Opioid Use kb - Patient Portal Instructions kb - Leadership Thank You Letter kb Signatures: Dispatcher [employer] Ni Grace, STUD DAIRY CATTLE FARMER-C STUD DAIRY CATTLE FARMER-Tricia Morocho, RN RN aa5 Maryellen Patterson, RN RN mb9
--- NOTE | 2023-07-31 20:20 | ER ---
Nurse's Notes [facility] Name: Kandi Walker Age: 22 yrs Sex: Female : 2000 Arrival Date: 07/31/2023 Time: 17:21 Bed 10 Private MD: Diagnosis: Vomiting of , unspecified Presentation: 07/31 17:36 Chief complaint: Patient states: "For the past few weeks I've been nauseous, vomiting, mb9 weak, and having sharp pain in my right and left side that radiates to my back. Today at work, I went to stand and I got dizzy and blurred vision. I'm 18 weeks ". Coronavirus screen: Vaccine status: Patient reports receiving the 2nd dose of the covid vaccine. Ebola Screen: No symptoms or risks identified at this time. Initial Sepsis Screen: Does the patient meet any 2 criteria? No. Patient's initial sepsis screen is negative. Does the patient have a suspected source of infection? No. Patient's initial sepsis screen is negative. Risk Assessment: Do you want to hurt yourself or someone else? Patient reports no desire to harm self or others. Onset of symptoms was July 31, 2023. 17:36 Method Of Arrival: Ambulatory mb9 17:36 Method Of Arrival: Ambulatory mb9 17:36 Acuity: KAYLYN 3 mb9 Triage Assessment: 17:40 General: Appears in no apparent distress. Behavior is calm, cooperative. Pain: mb9 Complains of pain in RLQ and LUQ Pain radiates to back Quality of pain is described as sharp, shooting, Pain began suddenly, Is intermittent. EENT: No deficits noted. Neuro: Jaime Agitation-Sedation Scale (RASS): 0 - Alert and Calm Level of Consciousness is awake, alert, obeys commands, Oriented to person, place, time, situation, Appropriate for age. Cardiovascular: Patient's skin is warm and dry. Respiratory: Airway is patent Respiratory effort is even, unlabored, Respiratory pattern is regular, symmetrical. GI: Abdomen is round non-distended, Bowel sounds present X 4 quads. Abd is soft Abdomen is tender to palpation in right upper quadrant and left lower quadrant Reports nausea, vomiting. : Denies vaginal bleeding. Derm: Skin is pink, warm \\T\\ dry. Musculoskeletal: Range of motion: intact in all extremities. R D INTERNSHIP: 17:39 LMP 01/2023, unknown mb9 20:23 1, 0, Living 0, LMP 01/2023, unknown kb Historical: - Allergies: 17:39 No Known Allergies; mb9 - Home Meds: 17:39 None [Active]; mb9 - PMHx: 17:39 None; mb9 - PSHx: 17:39 L knee repair; mb9 - Immunization history:: Adult Immunizations up to date. - Social history:: Smoking status: Patient denies any tobacco usage or history of. Screenin:39 [facility] ED Fall Risk Assessment (Adult) History of falling in the last 3 months, mb9 including since admission No falls in past 3 months (0 pts) Confusion or Disorientation No (0 pts) Intoxicated or Sedated No (0 pts) Impaired Gait No (0 pts) Mobility Assist Device Used No (0 pt) Altered Elimination No (0 pt) Score/Fall Risk Level 0 - 2 = Low Risk Oriented to surroundings, Maintained a safe environment, Educated pt \\T\\ family on fall prevention, incl call for assistance when getting out of bed. Abuse screen: Denies threats or abuse. Nutritional screening: No deficits noted. Tuberculosis screening: No symptoms or risk factors identified. Assessment: 18:23 Reassessment: see triage assessment. mb9 19:25 Reassessment: No changes from previously documented assessment. Patient and/or family mb9 updated on plan of care and expected duration. Pain level reassessed. Patient is alert, oriented x 3, equal unlabored respirations, skin warm/dry/pink. 20:25 Reassessment: Patient and/or family updated on plan of care and expected duration. Pain mb9 level reassessed. Patient is alert, oriented x 3, equal unlabored respirations, skin warm/dry/pink. Patient states feeling better. Patient states symptoms have improved. Vital Signs: 17:36 BP 115 / 63; Pulse 75; Resp 16; Temp 98.1; Pulse Ox 100% on R/A; Weight 73.03 kg; mb9 Height 5 ft. 3 in. ; Pain 0/10; 18:53 BP 104 / 61; Pulse 78; Resp 16; Pulse Ox 100% ; mb9 20:25 BP 112 / 68; Pulse 72; Resp 14; Pulse Ox 100% on R/A; mb9 17:36 Body Mass Index 28.52 (73.03 kg, 160.02 cm) mb9 17:36 Pain Scale: Adult mb9 ED Course: 17:25 Patient arrived in ED. mg5 17:25 Ni Rob FNP-C [facility]. kb 17:25 Bladimir De Santiago MD is Attending Physician. kb 17:36 Maryellen Patterson, SANDY is Primary Nurse. mb9 17:38 Triage completed. mb9 17:38 Arm band placed on. mb9 17:39 Placed in gown. Bed in low position. Call light in reach. Side rails up X 1. Client mb9 placed on continuous cardiac and pulse oximetry monitoring. NIBP monitoring applied. 17:41 No provider procedures requiring assistance completed. mb9 18:02 Urinalysis w/ reflexes Sent. mb9 18:02 Basic Metabolic Panel Sent. mb9 18:02 CBC with Diff Sent. mb9 18:18 Missed attempt(s): 22 gauge in left antecubital area. Bleeding controlled, band aid mb9 applied, catheter tip intact. 18:30 Missed attempt(s): 22 gauge in right forearm. Bleeding controlled, band aid applied, aa5 catheter tip intact. 18:32 Inserted saline lock: 22 gauge in right hand, using aseptic technique. aa5 20:25 IV discontinued, intact, bleeding controlled, No redness/swelling at site. Pressure mb9 dressing applied. Administered Medications: 18:33 Drug: NS 0.9% IV 1000 ml IV at 1000 ml once Route: IV; Rate: 1000 ml; Site: right hand; aa5 20:26 Follow up: Response: No adverse reaction; IV Status: Completed infusion mb9 18:42 Drug: Promethazine IVP 6.25 mg IVP once Route: IVP; Site: right hand; mb9 20:25 Follow up: Response: No adverse reaction mb9 18:52 Drug: NS 0.9% IV 1000 ml IV at 1000 ml once Route: IV; Rate: 1000 ml; Site: right hand; mb9 20:26 Follow up: Response: No adverse reaction; IV Status: Completed infusion mb9 Medication: 17:39 VIS not applicable for this client. mb9 Outcome: 20:19 Discharge ordered by . kb 20:42 Discharged to home ambulatory, mb9 20:42 Condition: stable 20:42 Discharge instructions given to patient, Instructed on discharge instructions, follow up and referral plans. Demonstrated understanding of instructions, follow-up care, 20:42 Patient left the ED. mb9 Signatures: Ni Rob FNP-C FNP-Ckb Calderon, Audri RN RN aa5 Maryellen Patterson RN RN mb9 Ivis Jerez mg5 Corrections: (The following items were deleted from the chart) 17:39 17:36 BP 115 / 93; Pulse 75bpm; Resp 16bpm; Pulse Ox 100% RA; Temp 98.1F; 73.03 kg; mb9 Height 5 ft. 3 in.; BMI: 28.5; Pain 0/10, Adult; mb9
[2023-07-31 21:43] VITALS: TEMP 98.1; O2SAT 100
[2023-07-31 21:45] VITALS: BP 112/68
== END 2023-07-31 20:42 | disposition home or self-care (01) ==
LOC: ER 17:21
DX: O21.9 Vomiting of pregnancy, unspecified (principal); Z3A.18 18 weeks gestation of pregnancy
CPT/HCPCS: 85025; 81001; 80048; 36415; J2550; J7030 ×2; 96361; 96374; 99284